=== PATIENT | female | born 1965 ===

== ENCOUNTER 2021-03-15 10:30 | Inpatient (IN) | payer OTHER ==
[~2021-03-15] VITALS: Ht 170.2 cm; Wt 101.2 kg
[~2021-03-15 10:30] MED LIST: ADULT LOW DOSE81 M1 PO; ALTACE5 MG PO; AMBIEN PO; BUMETANIDE1 MG PO; CATFLAN PO; DAILY VALUE1 EACH PO; GLIPIZIDE XL10 MG PO; JANUMET 50-1,01 EACH PO; SYNTHROID88 MCG; ZETIA10 MG PO
[2021-03-20] MEDS ORDERED: PERCOCET 5-3251 EACH PO (07:28)
[2021-03-20] MEDS ORDERED: NEURONTIN800 MG PO (07:28)
[2021-03-20] MEDS ORDERED: DIAZEPAM5 MG PO (07:28)
[2021-03-20] MEDS ORDERED: COLACE100 MG PO (07:28)
[2021-03-20] MEDS ORDERED: AMOX-CLAV 875-1 EAC1 PO (07:28)
[2021-03-20] MEDS ORDERED: MEDROLPACK PO (07:28)
== END 2021-03-21 18:10 | disposition home or self-care (01) | DRG 455 ==
LOC: SURH 03-20 06:08 → O/R 03-20 06:08 → SURH 03-20 10:15
PROVIDERS: ADMIT Orthopaedic Surgery Orthopaedic Surgery of the Spine; ATTEND Orthopaedic Surgery Orthopaedic Surgery of the Spine
PROC: 0SG00J1 Fusion of Lumbar Vertebral Joint with Synthetic Substitute, Posterior Approach, Posterior Column, Open Approach (ICD-10-PCS; 2021-03-20)
PROC: 07DR3ZZ Extraction of Iliac Bone Marrow, Percutaneous Approach (ICD-10-PCS; 2021-03-20)
PROC: 0SG00A0 Fusion of Lumbar Vertebral Joint with Interbody Fusion Device, Anterior Approach, Anterior Column, Open Approach (ICD-10-PCS; principal; 2021-03-20 10:15)
DX: M48.062 Spinal stenosis, lumbar region with neurogenic claudication (principal); M51.36 Other intervertebral disc degeneration, lumbar region